=== PATIENT | female | born 1960 | race Caucasian/White ===

== ENCOUNTER 2017-07-20 15:52 | Emergency (ER) | payer BC ==
[~2017-07-20] VITALS: Ht 170.2 cm; Wt 93.2 kg
[2017-07-20 17:48] LABS: HEMATOCRIT 39.2 % (36.0-46.0); HEMOGLOBIN 13.6 G/DL (11.9-15.5); MCH 30.3 PG (29.0-34.0); MCHC 34.7 G/DL (30.0-36.0); MCV 87.3 FL (83-99); PLATELET COUNT 188 K/uL (156-360); RBC DIS.WIDTH-CV 12.5 % (11.8-14.6); RBC DIS.WIDTH-SD 39.9 % (39-53); RED BLOOD COUNT 4.49 M/uL (3.80-5.20); WHITE BLOOD COUNT 5.8 K/uL (4.1-10.2)
[2017-07-20 18:02] LABS: CHLORIDE 105 mEq/L (99-109); POTASSIUM 3.9 mEq/L (3.7-5.4); SODIUM 138 mEq/L (136-147)
[2017-07-20 18:04] LABS: GLUCOSE 92 mg/dL (70-99)
[2017-07-20 18:07] LABS: CREATININE 0.8 mg/dL (0.6-1.3); GFR ESTIMATE (CALCULATED) > 59 mL/min/
[2017-07-20 18:08] LABS: UREA NITROGEN (BUN) 12 mg/dL (9-23)
[2017-07-20 18:10] LABS: TROP-I INTERPRETATION NEGATIVE; TROPONIN-I 0.02 ng/mL (0.0-0.30)
[2017-07-20 19:00] LABS: THYROTROPIN (TSH) 1.7 MIU/L (0.4-5.5)
[2017-07-20] MEDS ORDERED: TESSALON PERLE100 MG PO (19:06)
[2017-07-20] MEDS ORDERED: ZITHROMAX250 MG PO (19:06)
[2017-07-20] MEDS ORDERED: MORGIDOX100 MG PO (19:13)
[2017-07-20 19:22] VITALS: BP 127/86
== END 2017-07-20 19:23 | disposition home or self-care (01) ==
LOC: EME 15:52
PROVIDERS: Nurse Practitioner Family
DX: I10 Essential (primary) hypertension (principal); J20.9 Acute bronchitis, unspecified; R00.0 Tachycardia, unspecified; E03.9 Hypothyroidism, unspecified; Z88.0 Allergy status to penicillin
CPT/HCPCS: 70450; 71046; 80048; 84443; 84484; 85027; 93005; 99281; 99284